=== PATIENT | female | born 1985 | race Caucasian/White ===

== ENCOUNTER → 2020-12-16 | Outpatient (CLI) | payer OTHER ==
[2016-06-04 16:41] VITALS: BP 93/59
[~2020-12-16] MED LIST: BACTRIM DS TAB1 EACH PO; KETOROLAC10 MG PO; LEXAPRO5 MG PO
== END ==
LOC: LAB 07:34
DX: Z20.828 Contact with and (suspected) exposure to other viral communicable diseases (principal)

== ENCOUNTER → 2021-01-24 | Outpatient (CLI) | payer OTHER ==
[2016-06-04 16:41] VITALS: BP 93/59
== END ==
LOC: LAB 10:53
DX: Z20.822 Contact with and (suspected) exposure to COVID-19 (principal)